=== PATIENT | male | born 1975 | race Caucasian/White ===

== ENCOUNTER → 2016-12-05 | Outpatient (CLI) | payer OTHER ==
--- NOTE | 2016-12-05 15:03 | DIAGNOSTIC IMAGING REPORT ---
MRI OF THE LUMBAR SPINE WITHOUT IV CONTRAST CLINICAL HISTORY: Low back pain with right-sided radiculopathy. COMPARISON STUDY: No priors TECHNIQUE: MRI of the lumbar spine is performed utilizing various T1 and T2-weighted sequences in the axial and sagittal planes. IV contrast was not administered for this examination. The examination is significantly degraded by open MRI technique. FINDINGS: Lumbar spine: Vertebral body height and alignment are maintained throughout the lumbar spine. Mild degenerative endplate edema is noted at L5-S1. Normal marrow signal intensity is otherwise maintained. No destructive osseous lesion is identified. The transverse and spinous processes appear intact. There is no evidence of spondylolysis. Intervertebral discs: There is degenerative disc desiccation at L5-S1. The disc spaces are preserved. Spinal cord: The visualized spinal cord is normal in morphology and signal intensity with the conus medullaris terminates at the level of L1. The nerve roots of the cauda equina are normal as visualized. L1-L2: There is a small posterior disc bulge with annular fissure. The central canal and neural foramina appear patent. L2-L3: Unremarkable. L3-L4: There is minimal posterior disc bulge with annular fissure. The central canal and neural foramina are patent. L4-L5: Unremarkable. L5-S1: There is a posterior disc bulge eccentric to the left. This causes bilateral subarticular stenosis and may abut the exiting bilateral L5 and the left transiting S1 nerve roots. Facet arthropathy causes minimal left neural foraminal stenosis. Soft tissues: The paraspinous soft tissues are within normal limits. A 3 cm left renal cyst is incidentally noted. IMPRESSION: 1. There is no large disc herniation or central canal stenosis. 2. Mild lumbosacral spondylosis as above, greatest at L5-S1. See above discussion for detailed level by level analysis. 3. Mild degenerative disc disease with endplate edema is noted at L5-S1. Dictated: 12/05/2016 1:56 PM Transcribed: 12/05/2016 3:03 PM [place] Electronically signed by: Arturo Iqbal M.D. 12/05/2016 3:05 PM Dictated Date/Time: 12/05/2016 1:56 PM
== END | disposition home or self-care (01) ==
LOC: C.OPENMRI 12:42
PROVIDERS: ATTEND Family Medicine
DX: M47.897 Other spondylosis, lumbosacral region (principal); M51.37 Other intervertebral disc degeneration, lumbosacral region